=== PATIENT | female | born 1965 | race Caucasian/White ===

== ENCOUNTER → 2019-03-27 | Day surgery (SDC) | payer BC ==
[~2019-03-27] MED LIST: BUPIVACAINE 0.5%/EPI 30 ML SDV INJ ONE; CLINDAMYCIN PHOS 900MG/ 50ML 50 ML IV ONE; DEXAMETHASONE SOD PHOS INJ 4 MG/ML VIAL ONE; FENTANYL CITRATE/PF 100MCG/2 ML INJ ONE; FLONASE; KETOROLAC TROMETHAMINE 30 MG/ML VIAL ONE; LIDOCAINE HCL 2% LOCAL INJ 5 ML SDV VIAL INJ ONE; MAXALT10 MG PO; MIDAZOLAM HCL 2 MG/2 ML VIAL ONE; NAPROXEN250 MG PO; ONDANSETRON HCL INJ 2MG/ML 2ML 2 MG/ML VIAL ONE; PROPOFOL IV EMULSION 10 MG/ML 20 ML VIAL ONE; SERTRALINE HCL50 MG PO; SEVOFLURANE INHAL SOLN 250 ML PEN BTL ONE; ULTRAM50 MG; VALTREX500 MG PO; ZOLOFT50 MG PO
--- OUTSIDE RECORDS SUMMARY | 2019-03-27 05:18 | XMS REPORT | Continuity of Care Document ---
Author Author [employer] [facility] Organization [employer] [facility] Address Unknown Phone Unavailable Care Team Providers Care Summons Server Name Role Phone [employer] [facility] Unavailable Unavailable Problems Problem Status Onset Date Classification Date Reported Comments Source RT KNEE SCOPE Active [facility] Medications No Data Provided for This Section Allergies, Adverse Reactions, Alerts No Known Medication Allergies Immunizations No Data Provided for This Section Results No Data Provided for This Section Pathology Reports No Data Provided for This Section Diagnostic Reports No Data Provided for This Section Consultation Notes No Data Provided for This Section Discharge Summaries No Data Provided for This Section History and Physicals No Data Provided for This Section Vital Signs No Data Provided for This Section Encounters No Data Provided for This Section Procedures No Data Provided for This Section Assessment and Plan No Data Provided for This Section Plan of Care No Data Provided for This Section Social History No Data Provided for This Section Family History No Data Provided for This Section Advance Directives No Data Provided for This Section Functional Status No Data Provided for This Section
[2019-03-27 09:15] VITALS: BP 154/70
--- NOTE | 2019-03-28 18:18 | Operative Report ---
DATE OF PROCEDURE: 03/27/2019 SURGEON: [place] MD PREOPERATIVE DIAGNOSES: Right knee medial meniscus tear, right knee arthrofibrosis, right knee degenerative joint disease of the knee. POSTOPERATIVE DIAGNOSES: Right knee medial meniscus tear, right knee arthrofibrosis, right knee degenerative joint disease of the knee. OPERATIONS AND PROCEDURES PERFORMED: The patient underwent a right knee examination under anesthesia, right knee arthroscopy, right knee partial medial meniscectomy, right knee chondroplasty of the patella, the trochlea, the medial femoral condyle, the medial tibial plateau, the lateral femoral condyle, and lateral tibial plateau, as well as manipulation of the right knee under anesthesia. JOB COUNSELOR: Cuca Hagan. ANESTHESIA: General endotracheal intubation anesthesia. IV FLUIDS: Per the anesthesia record. BRIEF DESCRIPTION OF THE PATIENT'S OPERATIVE PROCEDURE: Ms. Jeffers was taken to the operating room, placed in the supine position on the operating table. Following induction of general anesthesia as well as endotracheal intubation, the patient's right lower extremity was examined under anesthesia. Started to have a mild effusion within the joint, but otherwise ligamentously stable knee. The patient's lower extremity was prepped and draped in standard fashion. A two-port technique was used to provide this patient arthroscopic evaluation of the knee joint. Examination of suprapatellar pouch, medial and lateral gutters found no evidence of loose bodies. There was however evidence of chondromalacia of the patellar and trochlear surfaces. The scope was advanced to the medial compartment. Examination of the medial compartment demonstrated a tear of the posterior horn of the medial meniscus. There was also chondromalacia of the articulating surfaces. A combination of biting forceps and a motorized shaver were used to resect the torn portion of meniscus. Chondroplasties of the medial femoral condyle and medial tibial plateau were performed at this time. The scope was then advanced to the intercondylar notch. The anterior cruciate ligament was identified and found to be intact. This scope was then advanced to the lateral compartment and there was chondromalacia of articulating surfaces. A combination of chondroplasty of the lateral femoral condyle and lateral tibial plateau were performed at this time. The scope was then placed in suprapatellar pouch. A chondroplasty of the patella and trochlea was performed. The knee was deflated with sterile normal saline. The portal sites were closed with 4-0 nylon suture. The portal sites as well as knee itself was injected with 0.5% Marcaine with epinephrine. Prior to applying the dressings, the patient's knee was placed in range of motion. She was found to have full extension, but had approximately 115 degrees of flexion. The knee was gently manipulated under anesthesia and fibrous bands were felt to give away around the knee joint. This resulted in 130 degrees of flexion of the knee joint. Sterile dressings were then applied to the knee. The patient was then awakened and taken to the postanesthesia care unit in stable condition. MD SAROJ Zaragoza/JANETTE /[id number]
== END | disposition home or self-care (01) ==
LOC: OR 05:16
PROVIDERS: ATTEND Specialist
DX: S83.221A Peripheral tear of medial meniscus, current injury, right knee, initial encounter (principal); M17.11 Unilateral primary osteoarthritis, right knee; M24.561 Contracture, right knee; Z88.1 Allergy status to other antibiotic agents; Z80.3 Family history of malignant neoplasm of breast; Z83.3 Family history of diabetes mellitus; Z01.810 Encounter for preprocedural cardiovascular examination; E66.9 Obesity, unspecified; F41.9 Anxiety disorder, unspecified; J30.2 Other seasonal allergic rhinitis
CPT/HCPCS: 29881; 93005; J1100; J1885; J2001; J2250; J2405; J2704; J3010